=== PATIENT | male | born 1960 | race African-American/Black ===

== ENCOUNTER 2020-01-01 22:25 | Inpatient (IN) | payer MEDICAID ==
[~2020-01-01] VITALS: Ht 193 cm; Wt 72.3 kg
[2020-01-01] MEDS ORDERED: PIPERACILLIN/TAZ 3.375G PREMIX 50 ML IV ONE (23:30)
[2020-01-01] MEDS ORDERED: SODIUM CHLORIDE 0.9% 1000ML BAG (SEPSIS BOLUS) IV ONE (23:30)
[2020-01-01] MEDS ORDERED: VANCOMYCIN 1 G PREMIX 200 ML IV ONE (23:30)
[2020-01-02 00:19] LABS: COLOR URINE YELLOW (YELLOW); KETONES URINE NEGATIVE (NEGATIVE); LEUKOCYTE ESTERASE URINE 3+ (NEGATIVE); NITRITE URINE NEGATIVE (NEGATIVE); OCCULT BLOOD URINE NEGATIVE (NEGATIVE); PROTEIN URINE 1+ (NEGATIVE); SPECIFIC GRAVITY URINE 1.012 (1.005-1.030); UROBILINOGEN URINE 0.2 E.U./dL (0.2-1.0)
[2020-01-02 00:20] LABS: CLARITY URINE HAZY (CLEAR)
[2020-01-02] MEDS ORDERED: HYDROCODONE/ACETAMINOPHEN 10/325MG TABLET PO ONE (01:00)
[2020-01-02] MEDS ORDERED: VANCOMYCIN 750 MG PREMIX 150 ML IV SCH (01:00)
[2020-01-02 01:03] LABS: BASOPHILS % 0.2 % (0.0-2.0); EOSINOPHILS % 4.3 % (0.0-5.0); HEMATOCRIT. 31.1 % (42.0-52.0); HEMOGLOBIN. 9.5 g/dL (14.0-18.0); LYMPHOCYTES % 12.3 % (20.0-50.0); MEAN CORPUSCULAR HEMOGLOBIN 23.5 pg (28.0-32.0); MEAN CORPUSCULAR VOLUME 76.8 fL (80.0-94.0); MONOCYTES % 12.6 % (2.0-8.0); NEUTROPHILS % 70.6 % (40.0-76.0); RED BLOOD CELL COUNT 4.05 mill/uL (4.7-6.1); RED CELL DISTRIBUTION WIDTH 18.1 % (11.6-14.6)
[2020-01-02 01:06] LABS: CHLORIDE 112 mEq/L (98-107)
[2020-01-02 01:09] LABS: PROTHROMBIN TIME 10.7 sec (9.6-11.0)
[2020-01-02] MEDS ORDERED: VANCOMYCIN 750 MG in DEXT 5% WATER 250 ML IV SCH (01:30)
[2020-01-02 01:32] LABS: MEAN PLATELET VOLUME 8.2 fl (7.4-10.4); PLATELET 258 x1000/uL (130-400)
[2020-01-02] MEDS ORDERED: IBUPROFEN 600MG TABLET PO ONE (04:15)
[2020-01-02] MEDS ORDERED: ONDANSETRON HCL 4MG/2ML INJ IV PRN (09:30)
[2020-01-02] MEDS ORDERED: PIPERACILLIN SODIUM/TAZOBACTAM 4.5 G in DEXT 5% WATER 100 ML IV SCH (09:30)
[2020-01-02 10:21] VITALS: BP 110/63
[2020-01-02] MEDS ORDERED: GABA800T97 MT (10:33)
[2020-01-02] MEDS ORDERED: HYDR-3280 MT (10:33)
[2020-01-02 12:00] VITALS: BP 110/63
[2020-01-02] MEDS: SODIUM CHLORIDE 0.45% 1,000 ML IV SCH ×2 (13:23→22:50)
[2020-01-02] MEDS: PIPERACILLIN/TAZOBACTAM 3.375 G in DEXT 5% WATER 100 ML IV SCH ×3 (13:24→20:56)
[2020-01-02] MEDS: ENOXAPARIN 40MG/0.4ML SYR SUBCUT SCH (13:24)
[2020-01-02] MEDS ORDERED: BISA10SU62 RC (15:34)
[2020-01-02] MEDS ORDERED: DOCU-150 MT (15:34)
[2020-01-02] MEDS ORDERED: FERR325T6 PO (15:34)
[2020-01-02] MEDS ORDERED: GABA-533 PO (15:34)
[2020-01-02] MEDS ORDERED: ASCO500C15 MT (15:34)
[2020-01-02 16:00] VITALS: BP 109/65
[2020-01-02] MEDS: HYDROCODONE/ACETAMINOPHEN 10/325MG TABLET PO PRN (17:01)
[2020-01-02 20:30] VITALS: BP 124/72
[2020-01-02] MEDS: ACETAMINOPHEN 325MG TABLET PO PRN (20:42)
[2020-01-02] MEDS: MORPHINE SULFATE 2 MG/ML CPJ (NOT FOR IM USE) IV PRN (20:42)
[2020-01-02] MEDS: GABAPENTIN 400MG CAPSULE PO SCH (20:43)
[2020-01-03 04:22] VITALS: BP 104/55
[2020-01-03] MEDS: SODIUM CHLORIDE 0.45% 1,000 ML IV SCH (04:42)
[2020-01-03] MEDS: PIPERACILLIN/TAZOBACTAM 3.375 G in DEXT 5% WATER 100 ML IV SCH ×3 (04:43→14:01)
[2020-01-03] MEDS: MORPHINE SULFATE 2 MG/ML CPJ (NOT FOR IM USE) IV PRN ×4 (06:17→20:57)
[2020-01-03 08:00] VITALS: BP 96/77
[2020-01-03] MEDS: GABAPENTIN 400MG CAPSULE PO SCH ×3 (09:38→17:34)
[2020-01-03] MEDS: ENOXAPARIN 40MG/0.4ML SYR SUBCUT SCH (09:38)
[2020-01-03 10:38] LABS: BASOPHILS % 1.5 % (0.0-2.0); EOSINOPHILS % 4.1 % (0.0-5.0); HEMATOCRIT. 28.1 % (42.0-52.0); HEMOGLOBIN. 8.8 g/dL (14.0-18.0); LYMPHOCYTES % 18.6 % (20.0-50.0); MEAN CORPUSCULAR HEMOGLOBIN 23.2 pg (28.0-32.0); MEAN CORPUSCULAR VOLUME 74.3 fL (80.0-94.0); MEAN PLATELET VOLUME 8.4 fl (7.4-10.4); MONOCYTES % 9.5 % (2.0-8.0); NEUTROPHILS % 66.3 % (40.0-76.0); PLATELET 251 x1000/uL (130-400); RED BLOOD CELL COUNT 3.78 mill/uL (4.7-6.1); RED CELL DISTRIBUTION WIDTH 17.9 % (11.6-14.6)
[2020-01-03 12:00] VITALS: BP 106/64
[2020-01-03 16:00] VITALS: BP 97/45
[2020-01-03 20:00] VITALS: BP 110/75
[2020-01-04] VITALS: BP 109/54
[2020-01-04] MEDS: PIPERACILLIN/TAZOBACTAM 3.375 G in DEXT 5% WATER 100 ML IV SCH ×5 (00:46→21:36)
[2020-01-04] MEDS: SODIUM CHLORIDE 0.45% 1,000 ML IV SCH (01:30)
[2020-01-04] MEDS: MORPHINE SULFATE 2 MG/ML CPJ (NOT FOR IM USE) IV PRN ×4 (02:54→22:29)
[2020-01-04] MEDS: HYDROCODONE/ACETAMINOPHEN 10/325MG TABLET PO PRN (02:54)
[2020-01-04 04:00] VITALS: BP 109/64
[2020-01-04 08:00] VITALS: BP 117/64
[2020-01-04 08:25] LABS: COVID-19 PCR RNA DETECTED
[2020-01-04 08:26] LABS: COVID-19 PCR RNA DETECTED
[2020-01-04] MEDS: GABAPENTIN 400MG CAPSULE PO SCH ×3 (09:22→17:15)
[2020-01-04] MEDS: ENOXAPARIN 40MG/0.4ML SYR SUBCUT SCH (09:22)
[2020-01-04] MEDS: SODIUM CHLORIDE 0.9% 1,000 ML IV SCH (11:00)
[2020-01-04 12:00] VITALS: BP 110/63
[2020-01-04 13:22] LABS: BASOPHILS % 0.8 % (0.0-2.0); EOSINOPHILS % 4.1 % (0.0-5.0); HEMATOCRIT. 29.4 % (42.0-52.0); HEMOGLOBIN. 9.2 g/dL (14.0-18.0); LYMPHOCYTES % 21.7 % (20.0-50.0); MEAN CORPUSCULAR HEMOGLOBIN 23.3 pg (28.0-32.0); MEAN CORPUSCULAR VOLUME 74.4 fL (80.0-94.0); MEAN PLATELET VOLUME 8.5 fl (7.4-10.4); MONOCYTES % 8.2 % (2.0-8.0); NEUTROPHILS % 65.2 % (40.0-76.0); PLATELET 239 x1000/uL (130-400); RED BLOOD CELL COUNT 3.94 mill/uL (4.7-6.1); RED CELL DISTRIBUTION WIDTH 18.1 % (11.6-14.6)
[2020-01-04 16:00] VITALS: BP 95/53
[2020-01-04 20:00] VITALS: BP 118/65
[2020-01-04] MEDS: ASCORBIC ACID 500 MG TABLET PO SCH (20:43)
[2020-01-04] MEDS: HYDROXYCHLOROQUINE SULFATE 200MG TABLET PO SCH (21:41)
[2020-01-05] VITALS: BP 105/67
[2020-01-05] MEDS: SODIUM CHLORIDE 0.9% 1,000 ML IV SCH ×2 (00:37→14:57)
[2020-01-05] MEDS: MORPHINE SULFATE 2 MG/ML CPJ (NOT FOR IM USE) IV PRN ×3 (02:47→20:20)
[2020-01-05] MEDS: PIPERACILLIN/TAZOBACTAM 3.375 G in DEXT 5% WATER 100 ML IV SCH ×4 (03:28→20:50)
[2020-01-05 04:00] VITALS: BP 102/59
[2020-01-05] MEDS: HYDROCODONE/ACETAMINOPHEN 10/325MG TABLET PO PRN (05:47)
[2020-01-05 06:22] LABS: BASOPHILS % 0.6 % (0.0-2.0); EOSINOPHILS % 1.2 % (0.0-5.0); HEMATOCRIT. 30.4 % (42.0-52.0); HEMOGLOBIN. 9.5 g/dL (14.0-18.0); LYMPHOCYTES % 28.7 % (20.0-50.0); MEAN CORPUSCULAR HEMOGLOBIN 23.1 pg (28.0-32.0); MEAN CORPUSCULAR VOLUME 74.2 fL (80.0-94.0); MEAN PLATELET VOLUME 8.1 fl (7.4-10.4); MONOCYTES % 8.9 % (2.0-8.0); NEUTROPHILS % 60.6 % (40.0-76.0); PLATELET 223 x1000/uL (130-400); RED CELL DISTRIBUTION WIDTH 17.8 % (11.6-14.6)
[2020-01-05 08:00] VITALS: BP 101/61
[2020-01-05] MEDS: ENOXAPARIN 40MG/0.4ML SYR SUBCUT SCH (09:50)
[2020-01-05] MEDS: ZINC SULFATE 220 MG ( 50 ) CAPSULE PO SCH (09:51)
[2020-01-05] MEDS: HYDROXYCHLOROQUINE SULFATE 200MG TABLET PO SCH ×2 (09:51→20:50)
[2020-01-05] MEDS: ASCORBIC ACID 500 MG TABLET PO SCH ×2 (09:51→20:50)
[2020-01-05] MEDS: GABAPENTIN 400MG CAPSULE PO SCH ×3 (09:51→17:24)
[2020-01-05 12:09] VITALS: BP 102/42
[2020-01-05 14:37] LABS: CREATINE KINASE 222 IU/L (39-308)
[2020-01-05 16:16] VITALS: BP 103/58
[2020-01-05] MEDS: CITRIC ACID/SODIUM CITRATE SOLN 15ML UDC PO SCH ×2 (17:00→17:24)
[2020-01-05 20:00] VITALS: BP 94/76
[2020-01-06] VITALS: BP 94/55
[2020-01-06] MEDS: PIPERACILLIN/TAZOBACTAM 3.375 G in DEXT 5% WATER 100 ML IV SCH ×4 (03:07→20:43)
[2020-01-06] MEDS: SODIUM CHLORIDE 0.9% 1,000 ML IV SCH ×2 (03:23→14:20)
[2020-01-06] MEDS: MORPHINE SULFATE 2 MG/ML CPJ (NOT FOR IM USE) IV PRN ×3 (03:29→21:19)
[2020-01-06 08:00] VITALS: BP 134/40
[2020-01-06 08:40] LABS: BASOPHILS % 1.5 % (0.0-2.0); EOSINOPHILS % 2.9 % (0.0-5.0); HEMATOCRIT. 32.3 % (42.0-52.0); LYMPHOCYTES % 27.1 % (20.0-50.0); MEAN CORPUSCULAR HEMOGLOBIN 23.2 pg (28.0-32.0); MEAN CORPUSCULAR VOLUME 75.1 fL (80.0-94.0); MEAN PLATELET VOLUME 7.9 fl (7.4-10.4); MONOCYTES % 11.1 % (2.0-8.0); NEUTROPHILS % 57.4 % (40.0-76.0); PLATELET 188 x1000/uL (130-400); RED BLOOD CELL COUNT 4.31 mill/uL (4.7-6.1); RED CELL DISTRIBUTION WIDTH 18.3 % (11.6-14.6)
[2020-01-06] MEDS: CITRIC ACID/SODIUM CITRATE SOLN 15ML UDC PO SCH ×2 (09:00→16:55)
[2020-01-06] MEDS: GABAPENTIN 400MG CAPSULE PO SCH ×3 (09:50→16:48)
[2020-01-06] MEDS: ASCORBIC ACID 500 MG TABLET PO SCH ×2 (09:50→20:43)
[2020-01-06] MEDS: HYDROXYCHLOROQUINE SULFATE 200MG TABLET PO SCH ×2 (09:50→20:43)
[2020-01-06] MEDS: ZINC SULFATE 220 MG ( 50 ) CAPSULE PO SCH (09:50)
[2020-01-06] MEDS: ENOXAPARIN 40MG/0.4ML SYR SUBCUT SCH (09:51)
[2020-01-06 12:00] VITALS: BP 102/71
[2020-01-06 16:00] VITALS: BP 101/59
[2020-01-06 20:00] VITALS: BP 108/63
[2020-01-07] VITALS: BP 105/62
[2020-01-07] MEDS: PIPERACILLIN/TAZOBACTAM 3.375 G in DEXT 5% WATER 100 ML IV SCH ×2 (03:24→09:30)
[2020-01-07] MEDS: MORPHINE SULFATE 2 MG/ML CPJ (NOT FOR IM USE) IV PRN (03:25)
[2020-01-07 03:30] VITALS: BP 102/57
[2020-01-07] MEDS: SODIUM CHLORIDE 0.9% 1,000 ML IV SCH (03:38)
[2020-01-07 06:51] LABS: BASOPHILS % 0.6 % (0.0-2.0); EOSINOPHILS % 2.6 % (0.0-5.0); HEMATOCRIT. 31.7 % (42.0-52.0); HEMOGLOBIN. 9.8 g/dL (14.0-18.0); LYMPHOCYTES % 33.7 % (20.0-50.0); MEAN CORPUSCULAR HEMOGLOBIN 23.2 pg (28.0-32.0); MEAN CORPUSCULAR VOLUME 75.3 fL (80.0-94.0); MEAN PLATELET VOLUME 8.5 fl (7.4-10.4); MONOCYTES % 9.3 % (2.0-8.0); NEUTROPHILS % 53.8 % (40.0-76.0); PLATELET 193 x1000/uL (130-400); RED BLOOD CELL COUNT 4.21 mill/uL (4.7-6.1); RED CELL DISTRIBUTION WIDTH 18.2 % (11.6-14.6)
[2020-01-07 08:00] VITALS: BP 93/64
[2020-01-07] MEDS: CITRIC ACID/SODIUM CITRATE SOLN 15ML UDC PO SCH ×2 (09:00→09:28)
[2020-01-07] MEDS: HYDROXYCHLOROQUINE SULFATE 200MG TABLET PO SCH (09:29)
[2020-01-07] MEDS: ASCORBIC ACID 500 MG TABLET PO SCH ×2 (09:29→20:00)
[2020-01-07] MEDS: GABAPENTIN 400MG CAPSULE PO SCH ×3 (09:29→17:44)
[2020-01-07] MEDS: ZINC SULFATE 220 MG ( 50 ) CAPSULE PO SCH (09:29)
[2020-01-07] MEDS: ENOXAPARIN 30MG/0.3ML SYR SUBCUT SCH (09:29)
[2020-01-07 12:00] VITALS: BP 101/71
[2020-01-07] MEDS: HYDROCODONE/ACETAMINOPHEN 5/325MG TABLET PO PRN (14:23)
[2020-01-07] MEDS ORDERED: CITRIC ACID/SODIUM CITRATE SOLN 15ML UDC PO SCH (17:00)
[2020-01-07 17:11] LABS: CREATINE KINASE 249 IU/L (39-308)
[2020-01-07] MEDS: SODIUM BICARBONATE 100 MEQ in SODIUM CHLORIDE 0.45% 1,000 ML IV SCH (17:44)
[2020-01-07 20:00] VITALS: BP 100/60
[2020-01-08] VITALS: BP 112/54
[2020-01-08 04:00] VITALS: BP 110/59
[2020-01-08] MEDS: HYDROCODONE/ACETAMINOPHEN 5/325MG TABLET PO PRN ×2 (05:52→12:51)
[2020-01-08 07:27] LABS: PHOSPHORUS 4.7 mg/dL (2.5-4.9)
[2020-01-08 08:00] VITALS: BP 103/54
[2020-01-08] MEDS: ASCORBIC ACID 500 MG TABLET PO SCH ×2 (08:38→22:53)
[2020-01-08] MEDS: ENOXAPARIN 30MG/0.3ML SYR SUBCUT SCH (08:38)
[2020-01-08] MEDS: ZINC SULFATE 220 MG ( 50 ) CAPSULE PO SCH (08:38)
[2020-01-08] MEDS: GABAPENTIN 400MG CAPSULE PO SCH ×3 (08:38→16:03)
[2020-01-08] MEDS ORDERED: SODIUM BICARBONATE 8.4% 1 MEQ/ML 50ML SYR IV SCH (10:15)
[2020-01-08] MEDS: SODIUM BICARBONATE 100 MEQ in SODIUM CHLORIDE 0.45% 1,000 ML IV SCH ×2 (10:17→15:53)
[2020-01-08 12:00] VITALS: BP 118/65
[2020-01-08 12:07] LABS: BASOPHILS % 0.6 % (0.0-2.0); EOSINOPHILS % 1.3 % (0.0-5.0); HEMATOCRIT. 31.3 % (42.0-52.0); HEMOGLOBIN. 9.6 g/dL (14.0-18.0); LYMPHOCYTES % 21.8 % (20.0-50.0); MEAN CORPUSCULAR HEMOGLOBIN 23.2 pg (28.0-32.0); MEAN CORPUSCULAR VOLUME 75.2 fL (80.0-94.0); MEAN PLATELET VOLUME 8.3 fl (7.4-10.4); MONOCYTES % 9.7 % (2.0-8.0); NEUTROPHILS % 66.6 % (40.0-76.0); PLATELET 194 x1000/uL (130-400); RED BLOOD CELL COUNT 4.16 mill/uL (4.7-6.1); RED CELL DISTRIBUTION WIDTH 18.4 % (11.6-14.6)
[2020-01-08 16:00] VITALS: BP 104/62
[2020-01-08 20:00] VITALS: BP 127/63
[2020-01-08] MEDS: ACETAMINOPHEN 325MG TABLET PO PRN (22:53)
[2020-01-09] VITALS: BP 122/68
[2020-01-09 04:00] VITALS: BP 137/69
[2020-01-09 08:00] VITALS: BP 111/63
[2020-01-09] MEDS: ZINC SULFATE 220 MG ( 50 ) CAPSULE PO SCH (08:33)
[2020-01-09] MEDS: ASCORBIC ACID 500 MG TABLET PO SCH ×2 (08:33→22:52)
[2020-01-09] MEDS: ENOXAPARIN 30MG/0.3ML SYR SUBCUT SCH (08:33)
[2020-01-09] MEDS: GABAPENTIN 400MG CAPSULE PO SCH ×3 (08:33→17:35)
[2020-01-09 10:39] LABS: HEMATOCRIT. 30.7 % (42.0-52.0); HEMOGLOBIN. 9.7 g/dL (14.0-18.0); MEAN CORPUSCULAR HEMOGLOBIN 23.4 pg (28.0-32.0); MEAN PLATELET VOLUME 8.1 fl (7.4-10.4); PLATELET 213 x1000/uL (130-400); RED BLOOD CELL COUNT 4.14 mill/uL (4.7-6.1)
[2020-01-09] MEDS: HYDROCODONE/ACETAMINOPHEN 5/325MG TABLET PO PRN ×2 (10:52→17:35)
[2020-01-09] MEDS: SODIUM BICARBONATE 100 MEQ in SODIUM CHLORIDE 0.45% 1,000 ML IV SCH ×2 (10:52→13:00)
[2020-01-09 10:53] LABS: PHOSPHORUS 4.5 mg/dL (2.5-4.9)
[2020-01-09 12:00] VITALS: BP 120/68
[2020-01-09 12:06] LABS: BG BASE EXCESS -12.4 mmol/L (-2.0-2.0); BG CARBOXYHEMOGLOBIN 0.3 % (0.5-1.5); BG DEOXYHEMOGLOBIN 7.8 % (0.0-5.0); BG FRACTION INSPIRED OXYGEN 21; BG HCO3 ACT 13.7 mmol/L (22.0-26.0); BG METHEMOGLOBIN 0.4 % (0.0-1.5); BG OXYGEN SATURATION 92.1 % (92.0-98.5); BG OXYHEMOGLOBIN 91.5 % (94.0-97.0); BG PCO2 31.7 mmHg (35.0-45.0); BG PH 7.253 (7.350-7.450); BG PO2 64.8 mmHg (75.0-100.0); BG SAMPLE SITE RIGHT RADIAL; BG TOTAL HEMOGLOBIN 9.4 g/dL (12.0-18.0); BG VENT MODE ROOM AIR
[2020-01-09] MEDS ORDERED: LIDOCAINE HCL 1% 20ML VIAL (Pyxis) INJ ONE (13:17)
[2020-01-09 13:56] LABS: ATYPICAL LYMPHOCYTES 1; PLATELET ESTIMATE NORMAL
[2020-01-09 16:00] VITALS: BP 130/68
[2020-01-09 20:00] VITALS: BP 122/65
[2020-01-10] MEDS: SODIUM BICARBONATE 100 MEQ in SODIUM CHLORIDE 0.45% 1,000 ML IV SCH ×2 (03:10→13:43)
[2020-01-10 04:00] VITALS: BP 98/55
[2020-01-10] MEDS: HYDROCODONE/ACETAMINOPHEN 5/325MG TABLET PO PRN ×2 (05:09→13:53)
[2020-01-10 08:00] VITALS: BP 118/62
[2020-01-10] MEDS: ZINC SULFATE 220 MG ( 50 ) CAPSULE PO SCH (10:02)
[2020-01-10] MEDS: ENOXAPARIN 30MG/0.3ML SYR SUBCUT SCH (10:02)
[2020-01-10] MEDS: ASCORBIC ACID 500 MG TABLET PO SCH ×2 (10:02→22:44)
[2020-01-10] MEDS: GABAPENTIN 400MG CAPSULE PO SCH ×3 (10:02→18:10)
[2020-01-10 12:12] LABS: BASOPHILS % 0.4 % (0.0-2.0); EOSINOPHILS % 2.4 % (0.0-5.0); HEMATOCRIT. 27.6 % (42.0-52.0); HEMOGLOBIN. 8.7 g/dL (14.0-18.0); LYMPHOCYTES % 17.7 % (20.0-50.0); MEAN CORPUSCULAR HEMOGLOBIN 23.3 pg (28.0-32.0); MEAN CORPUSCULAR VOLUME 73.6 fL (80.0-94.0); MEAN PLATELET VOLUME 8.5 fl (7.4-10.4); MONOCYTES % 5.8 % (2.0-8.0); NEUTROPHILS % 73.7 % (40.0-76.0); PLATELET 246 x1000/uL (130-400); RED BLOOD CELL COUNT 3.75 mill/uL (4.7-6.1); RED CELL DISTRIBUTION WIDTH 18.1 % (11.6-14.6)
[2020-01-10 13:33] LABS: HEPATITIS B SURFACE ANTIGEN NEGATIVE
[2020-01-10 14:03] LABS: HEPATITIS A AB IGM NEGATIVE (NEGATIVE)
[2020-01-10 20:00] VITALS: BP 108/64
[2020-01-11] VITALS: BP 114/62
[2020-01-11 04:00] VITALS: BP 107/65
[2020-01-11] MEDS: SODIUM BICARBONATE 100 MEQ in SODIUM CHLORIDE 0.45% 1,000 ML IV SCH ×3 (05:43→21:39)
[2020-01-11 08:00] VITALS: BP 100/52
[2020-01-11] MEDS: ASCORBIC ACID 500 MG TABLET PO SCH ×2 (09:21→17:59)
[2020-01-11] MEDS: ZINC SULFATE 220 MG ( 50 ) CAPSULE PO SCH (09:21)
[2020-01-11] MEDS: GABAPENTIN 400MG CAPSULE PO SCH ×3 (09:21→17:54)
[2020-01-11] MEDS: ENOXAPARIN 30MG/0.3ML SYR SUBCUT SCH (09:22)
[2020-01-11 16:00] VITALS: BP 110/62
[2020-01-11 20:00] VITALS: BP 101/64
[2020-01-11 21:09] LABS: BASOPHILS % 0.3 % (0.0-2.0); EOSINOPHILS % 3.9 % (0.0-5.0); HEMATOCRIT. 26.3 % (42.0-52.0); HEMOGLOBIN. 8.4 g/dL (14.0-18.0); LYMPHOCYTES % 23.6 % (20.0-50.0); MEAN CORPUSCULAR HEMOGLOBIN 23.4 pg (28.0-32.0); MEAN CORPUSCULAR VOLUME 73.4 fL (80.0-94.0); MEAN PLATELET VOLUME 8.3 fl (7.4-10.4); NEUTROPHILS % 65.2 % (40.0-76.0); PLATELET 295 x1000/uL (130-400); RED BLOOD CELL COUNT 3.58 mill/uL (4.7-6.1); RED CELL DISTRIBUTION WIDTH 18.2 % (11.6-14.6)
[2020-01-11] MEDS: HYDROCODONE/ACETAMINOPHEN 5/325MG TABLET PO PRN (22:19)
[2020-01-12] VITALS: BP 110/63
[2020-01-12 08:00] VITALS: BP 94/66
[2020-01-12] MEDS ORDERED: POTASSIUM CHLORIDE 20MEQ TABLET SR PO SCH (08:00)
[2020-01-12] MEDS: GABAPENTIN 400MG CAPSULE PO SCH ×3 (12:01→17:04)
[2020-01-12] MEDS: ZINC SULFATE 220 MG ( 50 ) CAPSULE PO SCH (12:01)
[2020-01-12] MEDS: ASCORBIC ACID 500 MG TABLET PO SCH ×2 (12:01→21:27)
[2020-01-12] MEDS: ENOXAPARIN 30MG/0.3ML SYR SUBCUT SCH (12:01)
[2020-01-12 12:39] LABS: BASOPHILS % 0.5 % (0.0-2.0); EOSINOPHILS % 3.1 % (0.0-5.0); HEMATOCRIT. 30.8 % (42.0-52.0); HEMOGLOBIN. 9.5 g/dL (14.0-18.0); LYMPHOCYTES % 15.5 % (20.0-50.0); MEAN CORPUSCULAR HEMOGLOBIN 22.7 pg (28.0-32.0); MEAN CORPUSCULAR VOLUME 73.1 fL (80.0-94.0); MONOCYTES % 8.3 % (2.0-8.0); NEUTROPHILS % 72.6 % (40.0-76.0); PLATELET 288 x1000/uL (130-400); RED BLOOD CELL COUNT 4.21 mill/uL (4.7-6.1); RED CELL DISTRIBUTION WIDTH 17.8 % (11.6-14.6)
[2020-01-12] MEDS: SODIUM BICARBONATE 100 MEQ in SODIUM CHLORIDE 0.45% 1,000 ML IV SCH (13:46)
[2020-01-12] MEDS: HYDROCODONE/ACETAMINOPHEN 5/325MG TABLET PO PRN ×2 (13:54→21:28)
[2020-01-12 16:00] VITALS: BP 113/68
[2020-01-12 20:00] VITALS: BP 108/64
[2020-01-13] VITALS: BP 111/56
[2020-01-13 04:00] VITALS: BP 101/62
[2020-01-13] MEDS: HYDROCODONE/ACETAMINOPHEN 5/325MG TABLET PO PRN ×3 (04:46→22:12)
[2020-01-13 06:27] LABS: BASOPHILS % 0.5 % (0.0-2.0); HEMATOCRIT. 28.7 % (42.0-52.0); HEMOGLOBIN. 9.1 g/dL (14.0-18.0); MEAN CORPUSCULAR HEMOGLOBIN 23.4 pg (28.0-32.0); MEAN CORPUSCULAR VOLUME 73.4 fL (80.0-94.0); MEAN PLATELET VOLUME 8.3 fl (7.4-10.4); MONOCYTES % 8.4 % (2.0-8.0); NEUTROPHILS % 66.1 % (40.0-76.0); PLATELET 282 x1000/uL (130-400); RED BLOOD CELL COUNT 3.91 mill/uL (4.7-6.1); RED CELL DISTRIBUTION WIDTH 17.9 % (11.6-14.6)
[2020-01-13] MEDS: ZINC SULFATE 220 MG ( 50 ) CAPSULE PO SCH (09:43)
[2020-01-13] MEDS: GABAPENTIN 400MG CAPSULE PO SCH ×3 (09:43→22:00)
[2020-01-13] MEDS: ENOXAPARIN 30MG/0.3ML SYR SUBCUT SCH (09:44)
[2020-01-13] MEDS: ASCORBIC ACID 500 MG TABLET PO SCH ×2 (12:00→22:01)
[2020-01-13 12:09] VITALS: BP 98/57
[2020-01-13 16:00] VITALS: BP 105/60
[2020-01-13 20:00] VITALS: BP 123/60
[2020-01-14] VITALS: BP 129/56
[2020-01-14 04:00] VITALS: BP 98/59
[2020-01-14 08:00] VITALS: BP 103/64
[2020-01-14] MEDS: ZINC SULFATE 220 MG ( 50 ) CAPSULE PO SCH (08:24)
[2020-01-14] MEDS: ENOXAPARIN 30MG/0.3ML SYR SUBCUT SCH (08:24)
[2020-01-14] MEDS: GABAPENTIN 400MG CAPSULE PO SCH ×3 (08:24→18:35)
[2020-01-14] MEDS: ASCORBIC ACID 500 MG TABLET PO SCH ×2 (08:24→23:00)
[2020-01-14] MEDS: HYDROCODONE/ACETAMINOPHEN 5/325MG TABLET PO PRN (11:04)
[2020-01-14 12:04] VITALS: BP 117/64
[2020-01-14 16:00] VITALS: BP 149/78
[2020-01-14 20:00] VITALS: BP 101/69
[2020-01-14] MEDS: MORPHINE SULFATE 2 MG/ML CPJ (NOT FOR IM USE) IV PRN (23:00)
[2020-01-15] VITALS: BP 121/52
[2020-01-15] MEDS: MORPHINE SULFATE 2 MG/ML CPJ (NOT FOR IM USE) IV PRN ×4 (04:03→21:42)
[2020-01-15 08:00] VITALS: BP 96/69
[2020-01-15] MEDS: ASCORBIC ACID 500 MG TABLET PO SCH ×2 (09:31→20:42)
[2020-01-15] MEDS: ENOXAPARIN 30MG/0.3ML SYR SUBCUT SCH (09:31)
[2020-01-15] MEDS: GABAPENTIN 400MG CAPSULE PO SCH ×3 (09:31→16:59)
[2020-01-15] MEDS: ZINC SULFATE 220 MG ( 50 ) CAPSULE PO SCH (09:31)
[2020-01-15 12:00] VITALS: BP 96/55
[2020-01-15 13:44] LABS: BASOPHILS % 0.8 % (0.0-2.0); EOSINOPHILS % 4.4 % (0.0-5.0); HEMATOCRIT. 29.7 % (42.0-52.0); HEMOGLOBIN. 9.1 g/dL (14.0-18.0); LYMPHOCYTES % 32.7 % (20.0-50.0); MEAN CORPUSCULAR HEMOGLOBIN 22.9 pg (28.0-32.0); MEAN CORPUSCULAR VOLUME 74.5 fL (80.0-94.0); MEAN PLATELET VOLUME 8.3 fl (7.4-10.4); MONOCYTES % 8.7 % (2.0-8.0); NEUTROPHILS % 53.4 % (40.0-76.0); PLATELET 356 x1000/uL (130-400); RED BLOOD CELL COUNT 3.99 mill/uL (4.7-6.1); RED CELL DISTRIBUTION WIDTH 17.7 % (11.6-14.6)
[2020-01-15 16:00] VITALS: BP 102/60
[2020-01-15 20:00] VITALS: BP 101/67
[2020-01-16] VITALS: BP 99/55
[2020-01-16] MEDS: MORPHINE SULFATE 2 MG/ML CPJ (NOT FOR IM USE) IV PRN ×4 (03:35→21:03)
[2020-01-16 04:00] VITALS: BP 104/65
[2020-01-16 08:00] VITALS: BP 102/61
[2020-01-16] MEDS: ZINC SULFATE 220 MG ( 50 ) CAPSULE PO SCH (09:16)
[2020-01-16] MEDS: ENOXAPARIN 30MG/0.3ML SYR SUBCUT SCH (09:16)
[2020-01-16] MEDS: ASCORBIC ACID 500 MG TABLET PO SCH ×2 (09:16→21:02)
[2020-01-16] MEDS: GABAPENTIN 400MG CAPSULE PO SCH ×3 (09:16→17:55)
[2020-01-16 12:00] VITALS: BP 104/64
[2020-01-16 12:36] LABS: BASOPHILS % 0.4 % (0.0-2.0); EOSINOPHILS % 3.3 % (0.0-5.0); HEMATOCRIT. 29.6 % (42.0-52.0); HEMOGLOBIN. 9.2 g/dL (14.0-18.0); LYMPHOCYTES % 19.3 % (20.0-50.0); MEAN CORPUSCULAR HEMOGLOBIN 23.2 pg (28.0-32.0); MEAN CORPUSCULAR VOLUME 74.6 fL (80.0-94.0); MEAN PLATELET VOLUME 7.9 fl (7.4-10.4); MONOCYTES % 10.8 % (2.0-8.0); NEUTROPHILS % 66.2 % (40.0-76.0); PLATELET 337 x1000/uL (130-400); RED BLOOD CELL COUNT 3.97 mill/uL (4.7-6.1); RED CELL DISTRIBUTION WIDTH 17.1 % (11.6-14.6)
[2020-01-16 16:00] VITALS: BP 99/63
[2020-01-17] VITALS: BP 104/49
[2020-01-17] MEDS: MORPHINE SULFATE 2 MG/ML CPJ (NOT FOR IM USE) IV PRN ×4 (02:58→20:37)
[2020-01-17 08:00] VITALS: BP 110/55
[2020-01-17] MEDS: GABAPENTIN 400MG CAPSULE PO SCH ×3 (09:57→16:51)
[2020-01-17] MEDS: ASCORBIC ACID 500 MG TABLET PO SCH ×2 (09:57→20:35)
[2020-01-17] MEDS: ZINC SULFATE 220 MG ( 50 ) CAPSULE PO SCH (09:57)
[2020-01-17] MEDS: ENOXAPARIN 30MG/0.3ML SYR SUBCUT SCH (09:57)
[2020-01-17 12:00] VITALS: BP 100/68
[2020-01-17 12:13] LABS: BASOPHILS % 0.4 % (0.0-2.0); EOSINOPHILS % 3.5 % (0.0-5.0); HEMATOCRIT. 31.8 % (42.0-52.0); HEMOGLOBIN. 9.9 g/dL (14.0-18.0); LYMPHOCYTES % 28.9 % (20.0-50.0); MEAN CORPUSCULAR HEMOGLOBIN 23.4 pg (28.0-32.0); MEAN CORPUSCULAR VOLUME 75.2 fL (80.0-94.0); MEAN PLATELET VOLUME 7.7 fl (7.4-10.4); MONOCYTES % 9.4 % (2.0-8.0); NEUTROPHILS % 57.8 % (40.0-76.0); PLATELET 334 x1000/uL (130-400); RED BLOOD CELL COUNT 4.23 mill/uL (4.7-6.1); RED CELL DISTRIBUTION WIDTH 17.7 % (11.6-14.6)
[2020-01-17] MEDS ORDERED: INSULIN REGULAR (HUMULIN R) UD 100 UNITS/ML SYR IV SCH (15:00)
[2020-01-17] MEDS ORDERED: DEXTROSE 50% WATER 50ML SYRINGE IV SCH (15:00)
[2020-01-17] MEDS ORDERED: SODIUM BICARBONATE 8.4% 1 MEQ/ML 50ML SYR IV SCH (15:00)
[2020-01-17 16:00] VITALS: BP 106/59
[2020-01-17 20:00] VITALS: BP 104/54
[2020-01-18] VITALS: BP 110/56
[2020-01-18] MEDS: MORPHINE SULFATE 2 MG/ML CPJ (NOT FOR IM USE) IV PRN ×5 (00:37→21:42)
[2020-01-18 04:00] VITALS: BP 103/68
[2020-01-18 06:24] LABS: HEMATOCRIT. 28.9 % (42.0-52.0); HEMOGLOBIN. 9.1 g/dL (14.0-18.0); MEAN CORPUSCULAR HEMOGLOBIN 23.4 pg (28.0-32.0); MEAN CORPUSCULAR VOLUME 74.4 fL (80.0-94.0); PLATELET 335 x1000/uL (130-400); RED BLOOD CELL COUNT 3.88 mill/uL (4.7-6.1); RED CELL DISTRIBUTION WIDTH 17.5 % (11.6-14.6)
[2020-01-18 08:00] VITALS: BP 122/72
[2020-01-18] MEDS: ZINC SULFATE 220 MG ( 50 ) CAPSULE PO SCH (10:12)
[2020-01-18] MEDS: ASCORBIC ACID 500 MG TABLET PO SCH ×2 (10:12→21:42)
[2020-01-18] MEDS: ENOXAPARIN 30MG/0.3ML SYR SUBCUT SCH (10:12)
[2020-01-18] MEDS: GABAPENTIN 400MG CAPSULE PO SCH ×3 (10:13→18:50)
[2020-01-18 12:00] VITALS: BP 100/56
[2020-01-18 14:55] LABS: PLATELET ESTIMATE NORMAL
[2020-01-18 16:00] VITALS: BP 118/69
[2020-01-18 20:00] VITALS: BP 115/67
[2020-01-19] MEDS: MORPHINE SULFATE 2 MG/ML CPJ (NOT FOR IM USE) IV PRN ×4 (02:43→20:01)
[2020-01-19 05:30] VITALS: BP 108/64
[2020-01-19 07:18] LABS: BASOPHILS % 0.4 % (0.0-2.0); EOSINOPHILS % 2.3 % (0.0-5.0); HEMATOCRIT. 29.7 % (42.0-52.0); HEMOGLOBIN. 9.2 g/dL (14.0-18.0); LYMPHOCYTES % 24.2 % (20.0-50.0); MEAN CORPUSCULAR HEMOGLOBIN 23.3 pg (28.0-32.0); MEAN CORPUSCULAR VOLUME 75.2 fL (80.0-94.0); MONOCYTES % 13.6 % (2.0-8.0); NEUTROPHILS % 59.5 % (40.0-76.0); PLATELET 326 x1000/uL (130-400); RED BLOOD CELL COUNT 3.95 mill/uL (4.7-6.1); RED CELL DISTRIBUTION WIDTH 17.6 % (11.6-14.6)
[2020-01-19 08:00] VITALS: BP 98/56
[2020-01-19] MEDS: ASCORBIC ACID 500 MG TABLET PO SCH ×2 (09:38→20:46)
[2020-01-19] MEDS: GABAPENTIN 400MG CAPSULE PO SCH ×3 (09:38→18:35)
[2020-01-19] MEDS: ENOXAPARIN 30MG/0.3ML SYR SUBCUT SCH (09:38)
[2020-01-19] MEDS: ZINC SULFATE 220 MG ( 50 ) CAPSULE PO SCH (09:38)
[2020-01-19 12:00] VITALS: BP 105/65
[2020-01-19] MEDS ORDERED: SODIUM BICARBONATE 8.4% 1 MEQ/ML 50ML SYR IV NR (12:00)
[2020-01-19] MEDS ORDERED: CALCIUM GLUCONATE 1,000 MG in DEXT 5% WATER 90 ML IV NR (13:00)
[2020-01-19] MEDS ORDERED: SODIUM POLYSTYRENE SULFONATE 15 G/60 ML BOT PO NR (13:00)
[2020-01-19] MEDS ORDERED: DEXTROSE 50% WATER 50ML SYRINGE IV NR (13:00)
[2020-01-19] MEDS ORDERED: INSULIN REGULAR (HUMULIN R) UD 100 UNITS/ML SYR IV NR (13:00)
[2020-01-19 16:00] VITALS: BP 100/59
[2020-01-19 20:00] VITALS: BP 111/54
[2020-01-19] MEDS ORDERED: HEPARIN SODIUM 1,000 UNIT/1ML VIAL IV NR (21:00)
[2020-01-20] MEDS ORDERED: MORPHINE SULFATE 2 MG/ML CPJ (NOT FOR IM USE) IV PRN (01:45)
[2020-01-20 04:00] VITALS: BP 94/54
[2020-01-20 06:49] LABS: BASOPHILS % 0.3 % (0.0-2.0); EOSINOPHILS % 1.2 % (0.0-5.0); HEMATOCRIT. 31.7 % (42.0-52.0); LYMPHOCYTES % 16.8 % (20.0-50.0); MEAN CORPUSCULAR HEMOGLOBIN 23.4 pg (28.0-32.0); MEAN CORPUSCULAR VOLUME 74.5 fL (80.0-94.0); MONOCYTES % 13.1 % (2.0-8.0); NEUTROPHILS % 68.6 % (40.0-76.0); PLATELET 317 x1000/uL (130-400); RED BLOOD CELL COUNT 4.26 mill/uL (4.7-6.1); RED CELL DISTRIBUTION WIDTH 17.2 % (11.6-14.6)
[2020-01-20 08:00] VITALS: BP 88/57
[2020-01-20] MEDS: ZINC SULFATE 220 MG ( 50 ) CAPSULE PO SCH (10:16)
[2020-01-20] MEDS: GABAPENTIN 400MG CAPSULE PO SCH ×3 (10:16→17:06)
[2020-01-20] MEDS: ASCORBIC ACID 500 MG TABLET PO SCH ×2 (10:16→20:42)
[2020-01-20] MEDS: ENOXAPARIN 30MG/0.3ML SYR SUBCUT SCH (10:17)
[2020-01-20] MEDS: MORPHINE SULFATE 2 MG/ML CPJ (NOT FOR IM USE) IV PRN ×3 (10:17→20:42)
[2020-01-20] MEDS ORDERED: SODIUM POLYSTYRENE SULFONATE 15 G/60 ML BOT PO NR (13:00)
[2020-01-20 16:10] VITALS: BP 89/53
[2020-01-20 20:00] VITALS: BP 96/55
[2020-01-21] VITALS: BP 99/64
[2020-01-21] MEDS: MORPHINE SULFATE 2 MG/ML CPJ (NOT FOR IM USE) IV PRN ×4 (01:52→20:50)
[2020-01-21 09:59] LABS: BASOPHILS % 0.7 % (0.0-2.0); EOSINOPHILS % 2.4 % (0.0-5.0); HEMATOCRIT. 32.6 % (42.0-52.0); HEMOGLOBIN. 9.9 g/dL (14.0-18.0); LYMPHOCYTES % 28.7 % (20.0-50.0); MEAN CORPUSCULAR HEMOGLOBIN 23.3 pg (28.0-32.0); MEAN CORPUSCULAR VOLUME 76.9 fL (80.0-94.0); MEAN PLATELET VOLUME 7.9 fl (7.4-10.4); MONOCYTES % 8.8 % (2.0-8.0); NEUTROPHILS % 59.4 % (40.0-76.0); PLATELET 300 x1000/uL (130-400); RED BLOOD CELL COUNT 4.25 mill/uL (4.7-6.1); RED CELL DISTRIBUTION WIDTH 17.6 % (11.6-14.6)
[2020-01-21] MEDS: ASCORBIC ACID 500 MG TABLET PO SCH ×2 (10:00→20:50)
[2020-01-21] MEDS: GABAPENTIN 400MG CAPSULE PO SCH ×3 (10:00→16:49)
[2020-01-21] MEDS: ZINC SULFATE 220 MG ( 50 ) CAPSULE PO SCH (10:00)
[2020-01-21] MEDS: ENOXAPARIN 30MG/0.3ML SYR SUBCUT SCH (10:01)
[2020-01-21 20:00] VITALS: BP 112/61
[2020-01-22] VITALS: BP 107/69
[2020-01-22] MEDS: MORPHINE SULFATE 2 MG/ML CPJ (NOT FOR IM USE) IV PRN ×5 (00:49→23:46)
[2020-01-22 08:00] VITALS: BP 100/68
[2020-01-22] MEDS: ASCORBIC ACID 500 MG TABLET PO SCH ×2 (08:24→21:47)
[2020-01-22] MEDS: GABAPENTIN 400MG CAPSULE PO SCH ×3 (08:24→17:31)
[2020-01-22] MEDS: ENOXAPARIN 30MG/0.3ML SYR SUBCUT SCH (08:25)
[2020-01-22] MEDS: ZINC SULFATE 220 MG ( 50 ) CAPSULE PO SCH (08:25)
[2020-01-22 12:00] VITALS: BP 97/58
[2020-01-22 20:00] VITALS: BP 90/51
[2020-01-23] VITALS: BP 97/62
[2020-01-23 04:00] VITALS: BP 89/62
[2020-01-23] MEDS: ASCORBIC ACID 500 MG TABLET PO SCH ×2 (08:47→20:21)
[2020-01-23] MEDS: ZINC SULFATE 220 MG ( 50 ) CAPSULE PO SCH (08:47)
[2020-01-23] MEDS: GABAPENTIN 400MG CAPSULE PO SCH ×3 (08:47→17:00)
[2020-01-23] MEDS: ENOXAPARIN 30MG/0.3ML SYR SUBCUT SCH (08:47)
[2020-01-23] MEDS: MORPHINE SULFATE 2 MG/ML CPJ (NOT FOR IM USE) IV PRN ×3 (09:31→20:21)
[2020-01-23 10:22] LABS: BASOPHILS % 1.4 % (0.0-2.0); EOSINOPHILS % 2.4 % (0.0-5.0); HEMATOCRIT. 28.5 % (42.0-52.0); HEMOGLOBIN. 8.8 g/dL (14.0-18.0); LYMPHOCYTES % 17.1 % (20.0-50.0); MEAN CORPUSCULAR HEMOGLOBIN 23.4 pg (28.0-32.0); MEAN CORPUSCULAR VOLUME 75.5 fL (80.0-94.0); MONOCYTES % 13.2 % (2.0-8.0); NEUTROPHILS % 65.9 % (40.0-76.0); PLATELET 273 x1000/uL (130-400); RED BLOOD CELL COUNT 3.77 mill/uL (4.7-6.1); RED CELL DISTRIBUTION WIDTH 16.8 % (11.6-14.6)
[2020-01-23 10:39] LABS: PHOSPHORUS 6.2 mg/dL (2.5-4.9)
[2020-01-23] MEDS ORDERED: SODIUM BICARBONATE 8.4% 1 MEQ/ML 50ML SYR IV NR (11:45)
[2020-01-23] MEDS ORDERED: DEXTROSE 50% WATER 50ML SYRINGE IV NR (13:00)
[2020-01-23] MEDS ORDERED: INSULIN REGULAR (HUMULIN R) UD 100 UNITS/ML SYR IV NR (13:00)
[2020-01-23 20:00] VITALS: BP 110/60
[2020-01-24] VITALS: BP 106/70
[2020-01-24] MEDS: MORPHINE SULFATE 2 MG/ML CPJ (NOT FOR IM USE) IV PRN ×5 (00:20→21:31)
[2020-01-24 08:00] VITALS: BP 104/49
[2020-01-24] MEDS: ASCORBIC ACID 500 MG TABLET PO SCH ×2 (09:12→21:30)
[2020-01-24] MEDS: ZINC SULFATE 220 MG ( 50 ) CAPSULE PO SCH (09:12)
[2020-01-24] MEDS: ENOXAPARIN 30MG/0.3ML SYR SUBCUT SCH (09:13)
[2020-01-24] MEDS: GABAPENTIN 400MG CAPSULE PO SCH ×3 (09:17→17:18)
[2020-01-24 11:43] LABS: HEMATOCRIT. 25.5 % (42.0-52.0); MEAN CORPUSCULAR HEMOGLOBIN 23.3 pg (28.0-32.0); MEAN CORPUSCULAR VOLUME 74.2 fL (80.0-94.0); MEAN PLATELET VOLUME 8.3 fl (7.4-10.4); PLATELET 228 x1000/uL (130-400); RED BLOOD CELL COUNT 3.44 mill/uL (4.7-6.1); RED CELL DISTRIBUTION WIDTH 16.6 % (11.6-14.6)
[2020-01-24 12:00] VITALS: BP 114/66
[2020-01-24 14:23] LABS: PLATELET ESTIMATE NORMAL
[2020-01-24 16:00] VITALS: BP 104/62
[2020-01-24 20:00] VITALS: BP 101/61
[2020-01-25] VITALS: BP 104/64
[2020-01-25] MEDS: MORPHINE SULFATE 2 MG/ML CPJ (NOT FOR IM USE) IV PRN ×5 (01:37→22:31)
[2020-01-25 08:09] VITALS: BP 103/38
[2020-01-25] MEDS: GABAPENTIN 400MG CAPSULE PO SCH ×3 (09:46→17:49)
[2020-01-25] MEDS: ENOXAPARIN 30MG/0.3ML SYR SUBCUT SCH (09:46)
[2020-01-25] MEDS: ZINC SULFATE 220 MG ( 50 ) CAPSULE PO SCH (09:46)
[2020-01-25] MEDS: ASCORBIC ACID 500 MG TABLET PO SCH ×2 (09:46→20:48)
[2020-01-25 11:00] LABS: HEMATOCRIT. 26.7 % (42.0-52.0); HEMOGLOBIN. 8.3 g/dL (14.0-18.0); MEAN CORPUSCULAR HEMOGLOBIN 23.2 pg (28.0-32.0); MEAN CORPUSCULAR VOLUME 75.1 fL (80.0-94.0); MEAN PLATELET VOLUME 8.4 fl (7.4-10.4); PLATELET 242 x1000/uL (130-400); RED BLOOD CELL COUNT 3.56 mill/uL (4.7-6.1); RED CELL DISTRIBUTION WIDTH 16.7 % (11.6-14.6)
[2020-01-25 12:56] VITALS: BP 113/66
[2020-01-25 13:45] LABS: PLATELET ESTIMATE NORMAL
[2020-01-25 16:07] VITALS: BP 113/54
[2020-01-25 20:00] VITALS: BP 104/72
[2020-01-26] VITALS: BP 93/55
[2020-01-26] MEDS: MORPHINE SULFATE 2 MG/ML CPJ (NOT FOR IM USE) IV PRN ×5 (02:31→21:10)
[2020-01-26 08:00] VITALS: BP 107/62
[2020-01-26] MEDS: ENOXAPARIN 30MG/0.3ML SYR SUBCUT SCH (08:26)
[2020-01-26] MEDS: ASCORBIC ACID 500 MG TABLET PO SCH ×2 (08:27→21:09)
[2020-01-26] MEDS: GABAPENTIN 400MG CAPSULE PO SCH ×3 (08:27→16:56)
[2020-01-26] MEDS: ZINC SULFATE 220 MG ( 50 ) CAPSULE PO SCH (08:27)
[2020-01-26 16:00] VITALS: BP 95/62
[2020-01-26 20:00] VITALS: BP 102/54
[2020-01-27 00:25] VITALS: BP 101/54
[2020-01-27] MEDS: MORPHINE SULFATE 2 MG/ML CPJ (NOT FOR IM USE) IV PRN ×4 (01:42→14:02)
[2020-01-27] MEDS: ENOXAPARIN 30MG/0.3ML SYR SUBCUT SCH (10:10)
[2020-01-27] MEDS: GABAPENTIN 400MG CAPSULE PO SCH (10:11)
[2020-01-27] MEDS: ASCORBIC ACID 500 MG TABLET PO SCH (10:11)
[2020-01-27] MEDS: ZINC SULFATE 220 MG ( 50 ) CAPSULE PO SCH (10:11)
[2020-01-27 10:59] LABS: BASOPHILS % 0.6 % (0.0-2.0); EOSINOPHILS % 3.6 % (0.0-5.0); LYMPHOCYTES % 30.6 % (20.0-50.0); MEAN CORPUSCULAR VOLUME 76.3 fL (80.0-94.0); MEAN PLATELET VOLUME 8.8 fl (7.4-10.4); MONOCYTES % 10.1 % (2.0-8.0); NEUTROPHILS % 55.1 % (40.0-76.0); PLATELET 261 x1000/uL (130-400); RED BLOOD CELL COUNT 3.93 mill/uL (4.7-6.1); RED CELL DISTRIBUTION WIDTH 16.8 % (11.6-14.6)
[2020-01-27 12:30] VITALS: BP 110/64
[2020-01-27 12:54] VITALS: BP 110/64
[2020-01-27 14:02] VITALS: BP 110/64
== END 2020-01-27 14:30 | DRG 720 ==
LOC: ER 22:25 → 7EST 01-02 04:15 → EDBEDREQ 01-02 04:17 → EDBEDREQDT 01-02 04:17 → EDBEDREQSVC 01-02 04:17 → EDBEDREQTM 01-02 04:17 → ENRESERV 01-02 07:27 → 7EST 01-20 14:10 → 6WST 01-22 16:29
PROVIDERS: ADMIT Internal Medicine; ATTEND Internal Medicine
PROC: 02HV33Z Insertion of Infusion Device into Superior Vena Cava, Percutaneous Approach (ICD-10-PCS; principal; 2020-01-09)
PROC: B548ZZA Ultrasonography of Superior Vena Cava, Guidance (ICD-10-PCS; 2020-01-09)
PROC: 5A1D70Z Performance of Urinary Filtration, Intermittent, Less than 6 Hours Per Day (ICD-10-PCS; 2020-01-09)
PROC: 5A1D70Z Performance of Urinary Filtration, Intermittent, Less than 6 Hours Per Day (ICD-10-PCS; 2020-01-13)
PROC: 5A1D70Z Performance of Urinary Filtration, Intermittent, Less than 6 Hours Per Day (ICD-10-PCS; 2020-01-15)
PROC: 5A1D70Z Performance of Urinary Filtration, Intermittent, Less than 6 Hours Per Day (ICD-10-PCS; 2020-01-17)
PROC: 5A1D70Z Performance of Urinary Filtration, Intermittent, Less than 6 Hours Per Day (ICD-10-PCS; 2020-01-19)
PROC: 5A1D70Z Performance of Urinary Filtration, Intermittent, Less than 6 Hours Per Day (ICD-10-PCS; 2020-01-21)
PROC: 5A1D70Z Performance of Urinary Filtration, Intermittent, Less than 6 Hours Per Day (ICD-10-PCS; 2020-01-26)
DX: A41.89 Other specified sepsis (principal); U07.1 COVID-19; E43 Unspecified severe protein-calorie malnutrition; L89.324 Pressure ulcer of left buttock, stage 4; G82.20 Paraplegia, unspecified; L89.159 Pressure ulcer of sacral region, unspecified stage; N17.9 Acute kidney failure, unspecified; I12.0 Hypertensive chronic kidney disease with stage 5 chronic kidney disease or end stage renal disease; N18.6 End stage renal disease; J12.89 Other viral pneumonia; N39.0 Urinary tract infection, site not specified; E87.8 Other disorders of electrolyte and fluid balance, not elsewhere classified; D64.9 Anemia, unspecified; G62.9 Polyneuropathy, unspecified; N31.9 Neuromuscular dysfunction of bladder, unspecified; E87.5 Hyperkalemia; Z68.1 Body mass index [BMI] 19.9 or less, adult; Z99.2 Dependence on renal dialysis; Z93.3 Colostomy status; Z90.5 Acquired absence of kidney; Z79.1 Long term (current) use of non-steroidal anti-inflammatories (NSAID); Z93.2 Ileostomy status; Z79.899 Other long term (current) drug therapy; E87.2 Acidosis
CPT/HCPCS: 36415; 36600; 71045; 76937; 80048; 80053; 81003; 82375; 82550; 82570; 82575; 82805; 83605; 83735; 83880; 84100; 84145; 84300; 84484; 85025; 86705; 86709; 86803; 87340; 87420; 87635; 87804; 93005; 99285; C1752; J0610; J1644; J1650; J1815; J2270; J2543; J3370; J3490; J7030; J7060

== ENCOUNTER 2020-02-02 13:08 | Emergency (ER) | payer MEDICAID ==
[~2020-02-02] VITALS: Ht 193 cm; Wt 100.0 kg
[~2020-02-02 13:08] MED LIST: ASCO500C15 MT; BISA10SU62 RC; DOCU-150 MT; FERR325T6 PO; GABA-533 PO; HYDR-3280 MT
[2020-02-02 14:29] LABS: BASOPHILS % 0.3 % (0.0-2.0); EOSINOPHILS % 3.9 % (0.0-5.0); HEMATOCRIT. 24.7 % (42.0-52.0); HEMOGLOBIN. 7.8 g/dL (14.0-18.0); MEAN CORPUSCULAR HEMOGLOBIN 23.3 pg (28.0-32.0); MEAN CORPUSCULAR VOLUME 73.6 fL (80.0-94.0); MEAN PLATELET VOLUME 8.5 fl (7.4-10.4); MONOCYTES % 12.4 % (2.0-8.0); NEUTROPHILS % 64.4 % (40.0-76.0); PLATELET 193 x1000/uL (130-400); RED BLOOD CELL COUNT 3.36 mill/uL (4.7-6.1); RED CELL DISTRIBUTION WIDTH 16.6 % (11.6-14.6)
[2020-02-02 14:32] LABS: CHLORIDE 108 mEq/L (98-107)
[2020-02-02 14:37] LABS: INR 0.9; PARTIAL THROMBOPLASTIN TIME 33.1 sec (23.4-31.0); PROTHROMBIN TIME 10.2 sec (9.6-11.0)
[2020-02-02] MEDS ORDERED: LIDOCAINE HCL 1% 20ML VIAL (Pyxis) INJ ONE (14:59)
[2020-02-02] MEDS ORDERED: SODIUM BICARBONATE 4% (2.4MEQ) 5ML VIAL IV ONE (14:59)
[2020-02-02 18:24] LABS: CLARITY URINE TURBID (CLEAR); COLOR URINE YELLOW (YELLOW); KETONES URINE NEGATIVE (NEGATIVE); LEUKOCYTE ESTERASE URINE 3+ (NEGATIVE); NITRITE URINE NEGATIVE (NEGATIVE); OCCULT BLOOD URINE 2+ (NEGATIVE); PH URINE 5.5 (4.5-8.0); PROTEIN URINE 2+ (NEGATIVE); SPECIFIC GRAVITY URINE 1.011 (1.005-1.030); UROBILINOGEN URINE 0.2 E.U./dL (0.2-1.0)
[2020-02-02 23:42] VITALS: BP 110/60
== END 2020-02-02 23:43 | disposition home or self-care (01) ==
LOC: ER 13:20
DX: T82.49XA Other complication of vascular dialysis catheter, initial encounter (principal); N17.9 Acute kidney failure, unspecified; D63.1 Anemia in chronic kidney disease; E87.8 Other disorders of electrolyte and fluid balance, not elsewhere classified; N18.6 End stage renal disease; Z99.2 Dependence on renal dialysis; Z93.3 Colostomy status; Y84.1 Kidney dialysis as the cause of abnormal reaction of the patient, or of later complication, without mention of misadventure at the time of the procedure; Y92.128 Other place in nursing home as the place of occurrence of the external cause
CPT/HCPCS: 36415; 71045; 76937; 77001; 80053; 81003; 85025; 85610; 85730; 87077; 87086; 87186; 93005; 99285; C1752; C1769; J1642; J3490; Z7610

== ENCOUNTER 2020-02-19 14:54 | Emergency (ER) | payer MEDICAID ==
[~2020-02-19] VITALS: Ht 193 cm; Wt 91.0 kg
[2020-02-19 16:38] LABS: BASOPHILS % 0.6 % (0.0-2.0); CHLORIDE 107 mEq/L (98-107); EOSINOPHILS % 2.5 % (0.0-5.0); HEMATOCRIT. 23.4 % (42.0-52.0); HEMOGLOBIN. 7.4 g/dL (14.0-18.0); LYMPHOCYTES % 13.1 % (20.0-50.0); MEAN CORPUSCULAR HEMOGLOBIN 23.6 pg (28.0-32.0); MEAN CORPUSCULAR VOLUME 74.7 fL (80.0-94.0); MEAN PLATELET VOLUME 7.8 fl (7.4-10.4); MONOCYTES % 10.8 % (2.0-8.0); PLATELET 393 x1000/uL (130-400); RED BLOOD CELL COUNT 3.13 mill/uL (4.7-6.1); RED CELL DISTRIBUTION WIDTH 15.7 % (11.6-14.6)
[2020-02-19 16:40] LABS: PARTIAL THROMBOPLASTIN TIME 32.4 sec (23.4-31.0); PROTHROMBIN TIME 10.7 sec (9.6-11.0)
[2020-02-19] MEDS ORDERED: MORPHINE SULFATE 2 MG/ML CPJ (NOT FOR IM USE) IV PRN (23:30)
[2020-02-20] MEDS ORDERED: LIDOCAINE HCL 1% 20ML VIAL (Pyxis) INJ ONE (08:57)
[2020-02-20] MEDS ORDERED: SODIUM BICARBONATE 4% (2.4MEQ) 5ML VIAL IV ONE (08:57)
[2020-02-20] MEDS ORDERED: IOHEXOL-300 50 ML BOTTLE IV ONE (10:52)
[2020-02-20 14:00] VITALS: BP 108/62
== END 2020-02-20 12:33 | disposition short-term general hospital (02) ==
LOC: ER 14:58 → CANBEDREQ 02-20 12:12 → ER 02-20 12:33
DX: T82.49XA Other complication of vascular dialysis catheter, initial encounter (principal); D63.1 Anemia in chronic kidney disease; G82.20 Paraplegia, unspecified; N18.6 End stage renal disease; Z99.2 Dependence on renal dialysis; Z93.3 Colostomy status; Z79.899 Other long term (current) drug therapy; Y84.1 Kidney dialysis as the cause of abnormal reaction of the patient, or of later complication, without mention of misadventure at the time of the procedure; Y92.128 Other place in nursing home as the place of occurrence of the external cause
CPT/HCPCS: 36415; 36580; 71045; 80053; 85025; 85610; 85730; 86850; 86900; 86901; 93005; 96374; 99285; C1752; J1642; J2270; J3490; Q9967; Z7610